=== PATIENT | male | born 1995 | race Caucasian/White ===

== ENCOUNTER 2020-11-20 07:49 | Emergency (ER) | payer MEDICAID ==
[~2020-11-20] VITALS: Ht 172.7 cm; Wt 54.5 kg
[2020-11-20 07:56] VITALS: BP 129/76
[2020-11-20] MEDS ORDERED: HYDR-3972 PO (08:14)
[2020-11-20] MEDS ORDERED: IBUP-1986 PO (08:14)
[2020-11-20] MEDS ORDERED: PENI500T2 PO (08:14)
== END 2020-11-20 08:27 | disposition home or self-care (01) ==
LOC: ER 07:50
DX: K04.7 Periapical abscess without sinus (principal); K08.89 Other specified disorders of teeth and supporting structures; Z79.2 Long term (current) use of antibiotics; Z79.899 Other long term (current) drug therapy
CPT/HCPCS: 99283

== ENCOUNTER 2021-12-04 20:08 | Emergency (ER) | payer MEDICAID ==
[~2021-12-04 20:08] MED LIST: IBUP-1986 PO
[2021-12-04 20:10] VITALS: BP 146/94
--- NOTE | 2021-12-04 20:28 | NUR ---
patient in the ER for right sided lower tooth pain. he has been on ABT for two days. states thats it not working its getting worst.
[2021-12-04] MEDS ORDERED: NAPR-56 PO (20:30)
[2021-12-04] MEDS ORDERED: HYDROcodone/acetaminophen 5mg/325mg tablet PO ONE (20:30)
== END 2021-12-04 21:10 | disposition home or self-care (01) ==
LOC: ER 20:08
DX: K08.89 Other specified disorders of teeth and supporting structures (principal)
CPT/HCPCS: 99282; 99283

== ENCOUNTER 2022-12-02 15:04 | Emergency (ER) | payer MEDICAID ==
[~2022-12-02] VITALS: Ht 172.7 cm; Wt 54.5 kg
[2022-12-02 15:11] VITALS: BP 118/84
[2022-12-02] MEDS ORDERED: NAPR-56 PO (17:08)
[2022-12-02] MEDS ORDERED: TRAM50TA2 PO (17:08)
== END 2022-12-02 17:27 | disposition home or self-care (01) ==
LOC: ER 15:04
DX: S90.112A Contusion of left great toe without damage to nail, initial encounter (principal); Z79.899 Other long term (current) drug therapy; W22.8XXA Striking against or struck by other objects, initial encounter; Y93.89 Activity, other specified; Y92.89 Other specified places as the place of occurrence of the external cause; Y99.8 Other external cause status
CPT/HCPCS: 11740; 73630; 99284